=== PATIENT | male | born 1995 | race Two or more races ===

== ENCOUNTER 2025-02-11 17:26 | Emergency (ER) | payer OTHER ==
[~2025-02-11] VITALS: Ht 162.6 cm; Wt 77.1 kg
[2025-02-11] MEDS ORDERED: KETOROLAC TROMETHAMINE 60 MG VIAL IM ONE (19:00)
[2025-02-11] MEDS ORDERED: TRIAMCINOLONE ACETONIDE 40 MG/ML VIAL IM ONE (19:00)
[2025-02-11] MEDS ORDERED: DICLOFENAC SODI75 MG PO (19:55)
[2025-02-11] MEDS ORDERED: NORFLEX100MG PO (19:55)
[2025-02-11] MEDS ORDERED: TRAMADOL HCL 50 MG TABLET PO ONE (20:15)
== END 2025-02-11 22:21 ==
LOC: ER 17:26
DX: M54.50 Low back pain, unspecified (principal)